=== PATIENT | female | born 1970 | race Two or more races ===

== ENCOUNTER 2017-04-25 16:40 | Emergency (ER) | payer SELFPAY ==
[~2017-04-25] VITALS: Ht 157.5 cm; Wt 81.6 kg
[2017-04-25 16:57] VITALS: BP 151/96
[2017-04-25] MEDS ORDERED: KETOROLAC TROMETH 60MG/2ML VIAL IM ONE (19:15)
== END 2017-04-25 21:48 | disposition home or self-care (01) ==
LOC: ER 16:40
DX: S13.4XXA Sprain of ligaments of cervical spine, initial encounter (principal); V49.49XA Driver injured in collision with other motor vehicles in traffic accident, initial encounter; Y93.89 Activity, other specified; Y99.8 Other external cause status; Y92.410 Unspecified street and highway as the place of occurrence of the external cause; Z90.710 Acquired absence of both cervix and uterus
CPT/HCPCS: 72125; 96372; 99284; J1885